=== PATIENT | female | born 1990 | race Two or more races ===

== ENCOUNTER 2023-10-16 19:18 | Emergency (ER) | payer BC ==
[2023-10-16] MEDS: Amoxicillin/Clavulanate K 875-125 MG Tab PO STA (22:31)
[2023-10-16] MEDS: Diphtheria,Pertussis(Acell),Tetanus Vaccine 0.5 ML Syringe IM ONE (22:31)
== END 2023-10-16 23:03 | disposition home or self-care (01) ==
LOC: MW.ED 19:18
DX: S61.051A Open bite of right thumb without damage to nail, initial encounter (principal); S61.250A Open bite of right index finger without damage to nail, initial encounter; S61.031A Puncture wound without foreign body of right thumb without damage to nail, initial encounter; S61.230A Puncture wound without foreign body of right index finger without damage to nail, initial encounter; S80.211A Abrasion, right knee, initial encounter; J45.909 Unspecified asthma, uncomplicated; Z79.899 Other long term (current) drug therapy; W54.0XXA Bitten by dog, initial encounter; Z75.8 Other problems related to medical facilities and other health care
CPT/HCPCS: 90471; 90715; 99283; A9270

== ENCOUNTER 2024-08-15 19:00 | Emergency (ER) | payer BC ==
[2024-08-15] MEDS: Bupivacaine 0.5% 10 ML SDV INJECT ONE (21:19)
[2024-08-15] MEDS: Tranexamic Acid 1,000 MG/10 ML Vial TOP ONE (21:19)
[2024-08-15] MEDS: Cephalexin 500 MG Cap PO ONE (22:57)
== END 2024-08-15 23:06 | disposition home or self-care (01) ==
LOC: MW.ED 19:00
DX: S61.313A Laceration without foreign body of left middle finger with damage to nail, initial encounter (principal); Z79.899 Other long term (current) drug therapy; Z86.16 Personal history of COVID-19; X50.1XXA Overexertion from prolonged static or awkward postures, initial encounter
CPT/HCPCS: 11760; 99282; A9270; J0665